=== PATIENT | female | born 1975 | race Caucasian/White ===

== ENCOUNTER 2017-01-27 19:43 | Observation (INO) ==
--- NOTE | 2017-01-28 01:22 | Internal Med History&Physical ---
Date of Encounter: 01/28/17 Time of Encounter: 01:20 Assessment and Plan (1) Chest pain Current visit: Yes Status: Acute Chest pain are consistent with angina. Cardiac enzymes ordered. Aspirin is started and we will see if she can tolerate beta annabella. Schedule stress Myoview in the morning troponins are negative.. For risk stratification lipid profile ordered as well as hemoglobin A1c Qualifiers: Chest pain type: unspecified Qualified Code(s): R07.9 - Chest pain, unspecified (2) Acute exacerbation of chronic obstructive airways disease Current visit: Yes Status: Acute Breath sounds are shallow scattered wheezing at nebulizer 4 times a day (3) Diabetes mellitus Current visit: No Status: Chronic Accu-Chek 4 times a day with sliding scale coverage Qualifiers: Diabetes mellitus type: other specified (including RADU) Diabetes mellitus complication status: with hyperglycemia Diabetes mellitus [facility] insulin use: with [facility] use Qualified Code(s): E13.65 - Other specified diabetes mellitus with hyperglycemia; Z79.4 - termite helper (current) use of insulin; Z79.4 - jail (current) use of insulin; Z79.4 - jail (current) use of insulin ; Z79.4 - termite helper (current) use of insulin (4) Morbid obesity Current visit: No Status: Acute Counseling provided Internal Medicine - H&P: HPI Chief complaint: Chest pain Admitted From: Home Plans for Post Hospital Care: Home History of present illness: Ms. Cervantes is a 41 year old female has been having recurrent chest pain for last few weeks. Her family doctor has scheduled her for a stress test on February 10 however since her chest pain is getting worse she decided to come to ER. Patient has past medical history significant for diabetes and COPD. She is on home O2. For last few weeks she has been having substernal chest pain radiating to her neck and left arm and to her back. It is not accompanied with any nausea vomiting dizziness abdominal pain syncope palpitation or any other symptoms otherwise. It usually gets better with rest or aspirin. Past Med Surg Social Fam HX - Past Medical History Medical history: asthma, COPD, coronary artery disease, diabetes, GERD, seizures , syncope Psychiatric history: anxiety, bipolar, depression - Past Surgical History Surgical History: , other - Social History Smoking Status: Former smoker Smokeless Tobacco Status: No Alcohol use: none Drug use: none - Family History Father Adopted: No Living Status: Still Living Hx Family Cardiac Disorders: Yes (History of CABG and valvular disease) Hx Family Respiratory Disorders: Yes Hx Family Endocrine Disorder: Yes (History of diabetes) Mother Adopted: Yes Living Status: Still Living Internal Medicine - H&P: Meds ALPRAZolam [Xanax 1 MG Tablet] 1 mg PO BID PRN 03/12/15 [History] Albuterol Neb [Proventil Neb] 2.5 mg IH Q4HR 03/12/15 [History] Albuterol Sulfate [Ventolin Hfa] 2 aerosol IH QID PRN 03/12/15 [History] Budesonide/Formoterol 160/4.5 [Symbicort 160/4.5] 2 puff IH BIDR 03/12/15 [ History] Gabapentin [Neurontin] 300 mg PO TID 03/12/15 [History] HYDROcodone/Acet 5/325 mg [[place] 5-325 mg] 1 tab PO BID PRN 03/12/15 [History] Insulin Glargine,Hum.rec.anlog [Lantus Solostar] 40 unit SQ QAM 03/12/15 [ History] Insulin Glargine,Hum.rec.anlog [Lantus Solostar] 100 unit SQ HS 03/12/15 [ History] Ipratropium/Albuterol Neb [Duoneb] 3 ml IH Q6HR 03/12/15 [History] Liraglutide [Victoza 2-Lasha] 1.2 ml SQ DAILY 03/12/15 [History] Naproxen [Naprosyn] 500 mg PO BID PRN 03/12/15 [History] Tiotropium [Spiriva] 18 mcg IH 0700 03/12/15 [History] glipiZIDE [Glucotrol] 10 mg PO BIDWM 03/12/15 [History] lamoTRIgine [Lamictal Xr] 200 mg PO BID 03/12/15 [History] FLUoxetine HCl [Prozac] 40 mg PO DAILY 06/28/15 [History] Omeprazole 20 mg PO DAILY 06/28/15 [History] Insulin LISPRO [HumaLOG] 0 units SQ Q6HR vial 06/29/15 [Rx] Albuterol Sulfate [Albuterol Inhaler] 2 puff IH Q4H PRN #1 inhaler 12/30/16 [Rx] 3 Allergy/AdvReac Type Severity Reaction Status Date / Time tramadol AdvReac See Verified 10/15/15 10:32 Comments All Systems PM: A 10-system review of systems was performed and is negative for pertinent findings except as documented above in the HPI. - Constitutional Constitutional: no chills, no fever(s), no night sweats - EENT Eyes: no change in vision, no discharge, no pain, no photophobia Ears: no ear discharge, no ear pain, no tinnitus Nose, mouth and throat: no dysphagia, no nasal discharge, no neck pain, no sore throat - Cardiovascular Cardiovascular ROS IM: no chest pain, no diaphoresis, no dyspnea, no lightheadedness, no palpitations, no syncope - Respiratory Respiratory: no cough, no dyspnea, no wheezing, no excessive phlegm production - Gastrointestinal Gastrointestinal: no abdominal pain, no diarrhea, no hematemesis, no hematochezia, no melena, no nausea, no vomiting - Genitourinary Genitourinary: no change in urinary stream, no dysuria, no flank pain, no hematuria - Musculoskeletal Musculoskeletal ROS IM: no numbness, no tingling - Integumentary Integumentary IM: no rash, no unusual bruising - Neurological Neurological ROS: no confusion, no convulsions, no focal weakness, no numbness, no tingling, no tremor(s) - Hematologic/Lymphatic Hematologic/Lymphatic: no easy bruising - Constitutional Vitals: Temp Pulse Resp BP Pulse Ox 97.7 F 93 15 98/62 99 01/27/17 22:25 01/27/17 22:25 01/27/17 22:25 01/27/17 22:25 01/27/17 22:25 - Head Head exam: Present: atraumatic, normocephalic - Eye Eye exam: Present: PERRL, conjuntiva pink, sclera anicteric Pupils: Present: PERRL - Neck Neck exam general surgery: Present: supple, trachea midline. Absent: lymphadenopathy - Respiratory Respiratory exam: Present: decreased breath sounds, wheezes. Absent: accessory muscle use, rales, rhonchi - Cardiovascular Cardiovascular exam: Present: RRR, +S1, +S2. Absent: diastolic murmur, gallop, rubs, systolic murmur - GI/Abdominal GI/Abdominal exam: Present: normal bowel sounds, soft, no peritoneal signs. Absent: distended, tenderness - Extremities Exam Extremities exam: Present: warm, radial pulses palpable and symmetrical. Absent : calf tenderness, cyanotic, pedal edema - Neurological Exam Neurological exam: Present: CN II-XII intact, oriented X3, no focal deficits. Absent: pronater drift, facial droop, speech deficit - Skin Skin exam: Present: dry, intact
[2017-01-28] MEDS ORDERED: Dextrose Gel 15 GM PO PRN ×2 (02:04)
[2017-01-28] MEDS ORDERED: D5% in Water 1,000 ML IVC PRN (02:04)
[2017-01-28] MEDS ORDERED: *HR* Dextrose 50 % in Water (Syg) 50 ML SYRINGE IVP PRN (02:04)
[2017-01-28] MEDS ORDERED: Mag Hydrox/Al Hydrox/Simeth 30 ML UDC PO PRN (02:05)
[2017-01-28] MEDS ORDERED: Naloxone 0.4 MG/ML INJ IVP PRN (02:05)
[2017-01-28] MEDS ORDERED: *HR* Morphine 2 MG/ML SYRINGE IVP PRN (02:05)
[2017-01-28] MEDS ORDERED: Acetaminophen 325 MG TABLET PO PRN (02:05)
[2017-01-28 03:29] LABS: Hemoglobin A1C 11.3 %
[2017-01-28] MEDS: Ipratropium/Albuterol Neb 3 ML IH SCH ×4 (03:48→21:09)
[2017-01-28] MEDS: Gabapentin 300 MG CAPSULE PO SCH ×4 (04:05→21:30)
[2017-01-28] MEDS: Insulin LISPRO 300 UNITS/3 ML VIAL SQ SCH ×5 (04:05→21:29)
[2017-01-28 06:39] LABS: Basophils % 0.3 %; Eosinophils # 0.2 K/mcL (0.0-0.6); Eosinophils % 3.4 %; Immature Granulocytes % 0.3 % (0-4); Lymphocytes # 2.4 K/mcL (0.6-4.6); Lymphocytes % 33.2 %; Mean Corpuscular HGB Conc 30.3 g/dL (31.6-35.5); Mean Corpuscular Hemoglobin 21.9 pg (28.0-33.3); Mean Corpuscular Volume 72.4 fL (83.0-100.0); Mean Platelet Volume 9.8 fL (9.4-12.4); Monocytes # 0.3 K/mcL (0.0-1.3); Monocytes % 4.8 %; Neutrophils # 4.2 K/mcL (1.6-8.9); Platelet Count 230 K/mcL (140-400); Red Blood Count 4.56 M/mcL (3.82-4.97); Red Cell Distribution Width 16.2 % (11.5-14.5)
[2017-01-28 06:51] LABS: Alanine Aminotransferase 9 Units/L (0-55); Albumin 2.8 g/dL (3.5-5.0); Albumin/Globulin Ratio 0.8 (1.1-2.2); Alkaline Phosphatase 85 Units/L (38-126); Aspartate Amino Transferase 16 Units/L (5-34); BUN/Creatinine Ratio 14 (6-26); Bilirubin,Total 0.4 mg/dL (0.2-1.2); Blood Urea Nitrogen 10 mg/dL (7-20); Calcium 8.5 mg/dL (8.6-10.8); Carbon Dioxide 24 mEq/L (19-29); Chloride 99 mEq/L (98-109); Chol/HDL Ratio 6.4 (0-4.9); Cholesterol 172 mg/dL (< 200); Globulin 3.7 g/dL (2.4-3.5); Glucose 285 mg/dL (70-99); HDL Cholesterol 27 mg/dL (40-59); LDL Cholesterol,Calculated 82 mg/dL (0-99); Osmolality,Calculated 291 (280-300); Potassium 3.6 mEq/L (3.5-4.5); Sodium 136 mEq/L (136-145); Total Protein 6.5 g/dL (6.0-8.3); Triglycerides 316 mg/dL (< 150); eGFR For African Americans > 60 (> 60); eGFR For Non-African Americans > 60 (> 60)
[2017-01-28] MEDS ORDERED: Regadenoson 0.4 MG/5 ML SYRINGE IVP ONE (08:06)
[2017-01-28] MEDS ORDERED: Aspirin Enteric Coated 81 MG Tablet PO SCH (09:00)
[2017-01-28] MEDS: Ondansetron 4 MG/2 ML VIAL IVP PRN ×2 (10:24→18:56)
[2017-01-28] MEDS: FLUoxetine 20 MG CAPSULE PO SCH (10:24)
[2017-01-28] MEDS: lamoTRIgine 100 MG TABLET PO SCH ×2 (10:30→21:30)
[2017-01-28] MEDS: Budesonide/Formoterol 160/4.5 MDI IH SCH ×2 (10:36→21:09)
--- NOTE | 2017-01-28 11:57 | Internal Med Progress Note ---
Date of Encounter: 01/28/17 Time of Encounter: 10:10 - Assessment and plan (1) Chest pain Current Visit: Yes Status: Acute Assessment and plan: Patient reports approximately 1 month history of midsternal chest pain with radiation into her left arm and into mid back. She reports increased shortness of breath above her baseline, nausea, and diaphoresis with the pain. She reports numbness and tingling to her left arm. The pain is relieved with sitting becomes worse with deep inspiration and lying in a supine position. She reports the pain happens daily and lasts for about 15-20 minutes. She describes it as a tightness. She was seen by cardiology, Dr. Soto in December. He scheduled her to have a stress test and echo later this month but she was unable to wait until then. Pt is a 2 day stress test, will be completed tomorrow. Troponin was negative. Chest xray is negative for acute process. Continue telemetry ASA or morphine for chest pain prn Stress test to be completed tomorrow. Consider cardiology consultation based on stress results Qualifiers: Chest pain type: unspecified Qualified Code(s): R07.9 - Chest pain, unspecified (2) Acute exacerbation of chronic obstructive airways disease Current Visit: Yes Status: Acute Assessment and plan: No acute exacerbation. Lungs are clear and diminished. Pt wears home 02, 2L, is requiring 3 liters currently. Chest xray negative. 02 as needed to maintain sats > 92%. Telemetry Continue home medications and nebulizer treatments (3) Morbid obesity Current Visit: Yes Status: Chronic Assessment and plan: Chronic. Lifestyle modifications (4) DVT prophylaxis Current Visit: No Status: Inactive Assessment and plan: Heparin SQ, up to chair. (5) Diabetes mellitus Current Visit: Yes Status: Chronic Assessment and plan: Uncontrolled. Pt non-adherent to medication regimen due to financial constraints. SS consulted. Diabetic diet, SSI, and accuchecks achs. Refuses referrral back to diabetes education. Qualifiers: Diabetes mellitus type: other specified (including RADU) Diabetes mellitus complication status: with hyperglycemia Diabetes mellitus intermission coordinator insulin use: with intermission coordinator use Qualified Code(s): E13.65 - Other specified diabetes mellitus with hyperglycemia; Z79.4 - pen[facility]iary (current) use of insulin; Z79.4 - exterminator termite (current) use of insulin; Z79.4 - exterminator termite (current) use of insulin ; Z79.4 - exterminator termite (current) use of insulin - Time Spent With Patient less than 15 minutes - Subjective Interval history: Pt was seen and assessed at bedside at 1010 a.m. She is alert, awake, calm, and pleasant. We discussed the risks of her uncontrolled DM and elevated A1c. She denies need for diabetic education or any other assistance. she denies chest pain at this time, also denies n/v/d, headache, dizziness, or vision changes. She is a 2 day stress test. Pt is aware, questions answered. - Constitutional Vitals: Temp Pulse Resp BP Pulse Ox 97.4 F L 95 18 93/62 99 01/28/17 11:12 01/28/17 11:12 01/28/17 11:12 01/28/17 11:12 01/28/17 11:12 General appearance: Present: cooperative, A&O X 3, morbidly obese, no acute distress, answers questions appropriately - Head Head exam: Present: atraumatic, normal inspection, normocephalic - Eye Eye exam: Present: normal appearance, conjuntiva pink, sclera anicteric - Neck Neck exam general surgery: Present: supple, trachea midline. Absent: lymphadenopathy - Respiratory Respiratory exam: Present: CTAB. Absent: accessory muscle use, chest wall tenderness, decreased breath sounds, rales, rhonchi, wheezes - Cardiovascular Cardiovascular exam: Present: RRR, +S1, +S2. Absent: diastolic murmur, gallop, rubs, systolic murmur - GI/Abdominal GI/Abdominal exam: Present: normal bowel sounds, soft, no peritoneal signs. Absent: distended, firm, hepatomegaly, rigid, tenderness - Extremities Exam Extremities exam: Present: normal capillary refill, normal inspection, warm, radial pulses palpable and symmetrical. Absent: calf tenderness, cyanotic, pedal edema - Neurological Exam Neurological exam: Present: alert, oriented X3, no focal deficits. Absent: altered, facial droop, speech deficit - Skin Skin exam: Present: dry, intact, normal color, warm. Absent: rash Internal Medicine: Result - Labs CBC & Chem 7: 01/28/17 06:11 01/28/17 06:11 Labs: Short CBC 01/28/17 Range/Units 06:11 WBC 7.1 (4.3-11.1) K/mcL Hgb 10.0 L (11.5-15.4) g/dL Hct 33.0 L (35.3-44.9) % Plt Count 230 (140-400) K/mcL Neutrophils # 4.2 (1.6-8.9) K/mcL BMP 01/28/17 06:11 Sodium 136 Potassium 3.6 Chloride 99 Carbon Dioxide 24 BUN 10 Creatinine 0.72 Glucose 285 H Calcium 8.5 L Cardiac Enzymes 01/28/17 Range/Units 02:53 Troponin I 0.00 (0-0.03) ng/mL Liver Function 01/28/17 Range/Units 06:11 Total Bilirubin 0.4 (0.2-1.2) mg/dL AST 16 (5-34) Units/L ALT 9 (0-55) Units/L Alkaline Phosphatase 85 (38-126) Units/L Albumin 2.8 L (3.5-5.0) g/dL Consult Discharge Plan - Plan Referrals: Huang Moralez MD [Primary Care Provider] -
[2017-01-28] MEDS ORDERED: *HR* HYDROcodone/Acet 5/325 mg TABLET PO PRN ×2 (12:17→13:48)
[2017-01-28] MEDS ORDERED: Albuterol 2.5 MG/3 ML NEBULIZER IH PRN (12:17)
[2017-01-28] MEDS: ALPRAZolam 1 MG TABLET PO PRN ×2 (12:19→21:30)
[2017-01-28] MEDS ORDERED: Ondansetron 4 MG/2 ML VIAL IVP STA (13:45)
[2017-01-28] MEDS: Nitroglycerin 0.4 MG TAB.SUBL SL PRN ×3 (13:54→18:50)
--- NOTE | 2017-01-28 19:06 | Electrocardiograph Report ---
[place] [id number] Test Date: 2017-01-28 Pat Name: Kiana Cervantes Department: 113 Room: 3B Gender: F Slag Mixer: JOSE A : 1975 Requested By: Susie Frazier Order Number: [id number] Reading MD: Jose Guadalupe Grider DO Measurements Intervals [place] Rate: 113 P: 66 WA: 137 QRS: 52 QRSD: 73 T: 16 QT: 339 QTc: 406 Interpretive Statements SINUS TACHYCARDIA LOW QRS VOLTAGE IN PRECORDIAL LEADS Electronically Signed On 01-28-2017 19:04:13 EST by Jose Guadalupe Grider DO
[2017-01-28] MEDS ORDERED: lamoTRIgine 100 MG TABLET PO SCH (21:00)
[2017-01-28] MEDS ORDERED: Insulin DETEMIR 100 UNIT/ML X5UNITS SQ SCH (21:00)
[2017-01-29] MEDS: Ipratropium/Albuterol Neb 3 ML IH SCH ×2 (03:24→10:58)
[2017-01-29 05:42] LABS: Basophils % 0.3 %; Immature Granulocytes % 0.3 % (0-4)
[2017-01-29 05:43] LABS: Eosinophils # 0.2 K/mcL (0.0-0.6); Eosinophils % 2.8 %; Hematocrit 31.3 % (35.3-44.9); Hemoglobin 9.3 g/dL (11.5-15.4); Lymphocytes # 2.1 K/mcL (0.6-4.6); Lymphocytes % 32.4 %; Mean Corpuscular HGB Conc 29.7 g/dL (31.6-35.5); Mean Corpuscular Hemoglobin 21.9 pg (28.0-33.3); Mean Corpuscular Volume 73.8 fL (83.0-100.0); Mean Platelet Volume 9.6 fL (9.4-12.4); Monocytes # 0.4 K/mcL (0.0-1.3); Monocytes % 5.9 %; Neutrophils # 3.8 K/mcL (1.6-8.9); Platelet Count 228 K/mcL (140-400); Red Blood Count 4.24 M/mcL (3.82-4.97); Red Cell Distribution Width 16.4 % (11.5-14.5); Segmented Neutrophils % 58.3 %
[2017-01-29 05:52] LABS: BUN/Creatinine Ratio 11 (6-26); Blood Urea Nitrogen 8 mg/dL (7-20); Calcium 8.7 mg/dL (8.6-10.8); Carbon Dioxide 25 mEq/L (19-29); Chloride 102 mEq/L (98-109); Glucose 292 mg/dL (70-99); Osmolality,Calculated 297 (280-300); Potassium 3.8 mEq/L (3.5-4.5); Sodium 139 mEq/L (136-145); eGFR For African Americans > 60 (> 60); eGFR For Non-African Americans > 60 (> 60)
[2017-01-29 06:05] LABS: Anisocytosis 2+ (Not Present); Microcytosis Present (Not Present); Platelet Estimate Normal (Normal)
[2017-01-29 07:25] VITALS: BP 100/68
[2017-01-29] MEDS: Nitroglycerin 0.4 MG TAB.SUBL SL PRN ×3 (08:55→09:06)
[2017-01-29] MEDS: Ondansetron 4 MG/2 ML VIAL IVP PRN (08:57)
[2017-01-29] MEDS ORDERED: Insulin DETEMIR 100 UNIT/ML X5UNITS SQ SCH (09:00)
[2017-01-29] MEDS: FLUoxetine 20 MG CAPSULE PO SCH (09:00)
[2017-01-29] MEDS ORDERED: Aspirin Enteric Coated 81 MG Tablet PO SCH (09:00)
[2017-01-29] MEDS: lamoTRIgine 100 MG TABLET PO SCH (09:00)
[2017-01-29] MEDS: Insulin LISPRO 300 UNITS/3 ML VIAL SQ SCH (09:01)
[2017-01-29] MEDS: Gabapentin 300 MG CAPSULE PO SCH (09:01)
[2017-01-29] MEDS: Budesonide/Formoterol 160/4.5 MDI IH SCH (10:59)
--- NOTE | 2017-01-29 11:14 | Discharge Summary ---
Date of Encounter: 01/29/17 Time of Encounter: 09:10 - Discharge Diagnosis (1) Chest pain Priority: Primary Status: Acute Comments: Patient reports approximately 1 month history of midsternal chest pain with radiation into her left arm and into mid back. She reports increased shortness of breath above her baseline, nausea, and diaphoresis with the pain. She reports numbness and tingling to her left arm. The pain is relieved with sitting becomes worse with deep inspiration and lying in a supine position. She reports the pain happens daily and lasts for about 15-20 minutes. She describes it as a tightness. She was seen by cardiology, Dr. Soto in December. He scheduled her to have a stress test and echo later this month but she was unable to wait until then. Pt is a 2 day stress test, will be completed tomorrow. Troponin was negative. Chest xray is negative for acute process. Stress was negative for ischemia or infarct, gated EF 58%. Pt had 2 episodes of chest pain that was relieved with NTG SL. Pt had associated nausea and vomiting. I discussed case with cardiology CYTOLOGY TECHNOLOGIST and will add Imdur 30mg po daily and pt will follow up with cardiology in the clinic. Anginal chest pain that requires following. Pt reports that she needs assistance with financial aspect of obatining medications. SS will discuss with pt. Qualifiers: Chest pain type: unspecified Qualified Code(s): R07.9 - Chest pain, unspecified (2) Acute exacerbation of chronic obstructive airways disease Priority: Secondary Status: Acute Comments: No acute exacerbation. Lungs are clear and diminished. Pt wears home 02 @ 2L/ nc. Pt is not requiring 02 above her baseline. Chest xray negative. 02 as needed to maintain sats > 92%. Continue home medications (3) Morbid obesity Priority: Secondary Status: Chronic Comments: Chronic. Lifestyle modifications. (4) Diabetes mellitus Priority: Secondary Status: Chronic Comments: Uncontrolled, A1c 11.3. Pt states that she is not adherent to diabetic diet and states that she cannot always afford her medications. SS to discuss with pt. Pt states that she does not need to go back to diabetes education. Continue home medications and adhere to diabetic diet. Encourage increased exercise. Qualifiers: Diabetes mellitus type: other specified (including RADU) Diabetes mellitus complication status: with hyperglycemia Diabetes mellitus snf insulin use: with snf use Qualified Code(s): E13.65 - Other specified diabetes mellitus with hyperglycemia; Z79.4 - tube cutter operator (current) use of insulin; Z79.4 - tube cutter operator (current) use of insulin; Z79.4 - [facility] (current) use of insulin ; Z79.4 - tube cutter operator (current) use of insulin (5) DVT prophylaxis Priority: Secondary Status: Acute Comments: Heparin SQ, up to chair. - Discharge Medications Prescriptions: Isosorbide MONOnitrate (24 HR) [Imdur] 30 mg PO DAILY #30 tab.er.24h Home Medications: ALPRAZolam [Xanax 1 MG Tablet] 1 mg PO BID PRN 03/12/15 [History] Albuterol Neb [Proventil Neb] 2.5 mg IH Q4HR PRN 03/12/15 [History] Budesonide/Formoterol 160/4.5 [Symbicort 160/4.5] 2 puff IH BIDR 03/12/15 [ History] Gabapentin [Neurontin] 300 mg PO TID 03/12/15 [History] HYDROcodone/Acet 5/325 mg [[place] 5-325 mg] 1 tab PO DAILY PRN 03/12/15 [History] Insulin Glargine,Hum.rec.anlog [Lantus Solostar] 40 unit SQ QAM 03/12/15 [ History] Insulin Glargine,Hum.rec.anlog [Lantus Solostar] 100 unit SQ HS 03/12/15 [ History] Ipratropium/Albuterol Neb [Duoneb] 3 ml IH Q6HR PRN 03/12/15 [History] Liraglutide [Victoza 2-Lasha] 1.2 mg SQ DAILY 03/12/15 [History] Naproxen [Naprosyn] 500 mg PO BID PRN 03/12/15 [History] glipiZIDE [Glucotrol] 10 mg PO BIDWM 03/12/15 [History] FLUoxetine HCl [Prozac] 40 mg PO DAILY 06/28/15 [History] Omeprazole 20 mg PO DAILY 06/28/15 [History] Albuterol Sulfate [Albuterol Inhaler] 2 puff IH Q4H PRN #1 inhaler 12/30/16 [Rx] Aspirin Enteric Coated [Aspirin EC] 81 mg PO DAILY 01/28/17 [History] Atorvastatin [Lipitor] 40 mg PO HS 01/28/17 [History] Insulin LISPRO [HumaLOG] 0 units SQ TIDWM 01/28/17 [History] Umeclidinium Gratis [Incruse Ellipta] 62.5 mcg IH DAILY 01/28/17 [History] lamoTRIgine [Lamictal] 200 mg PO BID 01/28/17 [History] Isosorbide MONOnitrate (24 HR) [Imdur] 30 mg PO DAILY #30 tab.er.24h 01/29/17 [ Rx] Allergies/Adverse Reactions: 3 Allergy/AdvReac Type Severity Reaction Status Date / Time tramadol AdvReac See Verified 10/15/15 10:32 Comments Procedures/tests Complete & Pending: Procedures Performed prior 72 hours Category Date Time Status NM vicki perf SPECT multi [NM] Routine Exams 01/28/17 02:04 Taken ECG 12 lead ECG [ECG] Routine Y 01/28/17 13:51 Completed SP pharm nuclear stress Routine Y 01/28/17 02:03 Completed Date of admission: 01/27/17 21:49 Primary care physician: Huang Moralez MD Consults: 01/29/17 08:01 Consult to Director Of Campus Recreation [CONS] Routine Reason for SW Consult: assistance with medications Discharging clinician: Susie Frazier Anticipated date of discharge: 01/29/17 - Patient Status Disposition: Home, Self-Care Condition: Good Functional capacity at discharge: independent ambulation Overall status at discharge: patient is back to baseline - Discharge Instructions Follow Up With: Huang Moralez MD [Primary Care Provider] - Additional Instructions: Please follow-up with her primary care provider the next 7-10 days. Please follow-up with cardiology as scheduled. New prescription has been called into your pharmacy in [facility]. Please increase your exercise, and stick to a diabetic diet. Take the rest of her medications as directed. Return to the emergency department as needed for any other problems or concerns , or if her symptoms return or worsen. - Diet and Activity Activity: increase activity as tolerated Diet: diabetic diet, low fat, low cholesterol Hospital course: Ms. Cervantes is a 41 year old female with past medical history of COPD, diabetes, tobacco abuse, depression, morbid obesity. She presented to the emergency room with chest pain. She had multiple episodes of chest pain while she was here that were relieved with nitroglycerin. Chest pain was midsternal, sharp, without radiation. Patient had associated nausea and vomiting. Patient will be sent home with a prescription for Imdur and will resume her normal medications. She will follow up with cardiology in the clinic. Her stress test was negative she had no EKG changes and she is chest pain-free on discharge. technical services librarian will speak with her regarding financial concerns about obtaining medications. - Time Spent with Patient Total time spent providing and/or coordinating discharge services: Less than 30 minutes - Constitutional Vitals: Temp Pulse Resp BP Pulse Ox 98.1 F 82 15 100/68 98 01/29/17 07:24 01/29/17 07:24 01/29/17 07:24 01/29/17 07:24 01/29/17 09:23 General appearance: Present: cooperative, A&O X 3, morbidly obese, no acute distress, answers questions appropriately - Head Head exam: Present: atraumatic, normal inspection, normocephalic - Eye Eye exam: Present: normal appearance, conjuntiva pink, sclera anicteric - Neck Neck exam general surgery: Present: normal inspection, supple, trachea midline. Absent: lymphadenopathy, tenderness - Respiratory Respiratory exam: Present: CTAB. Absent: accessory muscle use, chest wall tenderness, rales, rhonchi, wheezes - Cardiovascular Cardiovascular exam: Present: RRR, +S1, +S2. Absent: diastolic murmur, gallop, rubs, systolic murmur - GI/Abdominal GI/Abdominal exam: Present: normal bowel sounds, soft. Absent: distended, hepatomegaly, tenderness - Extremities Exam Extremities exam: Present: normal capillary refill, warm, radial pulses palpable and symmetrical. Absent: calf tenderness, cyanotic, pedal edema, tenderness - Neurological Exam Neurological exam: Present: alert, oriented X3, no focal deficits. Absent: altered, facial droop, speech deficit - Skin Skin exam: Present: dry, intact, normal color, warm. Absent: rash
[2017-01-29] MEDS ORDERED: Isosorbide MONOnitrate (24 HR) 30 MG TAB.ER.24H PO SCH (11:15)
[2017-01-29] MEDS ORDERED: *HR* Heparin 5,000 UNIT/ML VIAL SQ SCH (12:02)
--- NOTE | 2017-01-30 13:12 | Electrocardiograph Report ---
[place] [id number] Test Date: 2017-01-29 Pat Name: Kiana Cervantes Department: 113 Room: 3B Gender: F Emery Wheel Molder: : 1975 Requested By: Susie Frazier Order Number: [id number] Reading MD: Martha Dietrich Measurements Intervals [place] Rate: 89 P: 49 SD: 141 QRS: 43 QRSD: 77 T: 43 QT: 353 QTc: 400 Interpretive Statements SINUS RHYTHM Electronically Signed On 01-30-2017 13:10:05 EST by Martha Dietrich
== END 2017-01-29 14:15 | disposition home or self-care (01) ==
LOC: 3BNU
PROVIDERS: ADMIT Internal Medicine; ATTEND Registered Nurse

== ENCOUNTER 2020-07-24 16:26 | Observation (INO) ==
[2020-07-24] MEDS ORDERED: Perflutren Lipid Microsphere 1.3 ML in 0.9 % Sodium Chloride 8.7 ML IVP PRN (20:35)
[2020-07-24] MEDS ORDERED: Morphine Sulfate 2 MG/ML SYRINGE IVP ONE (21:13)
[2020-07-24] MEDS ORDERED: Nitroglycerin 0.4 MG TAB.SUBL SL PRN (21:13)
[2020-07-24] MEDS ORDERED: Ondansetron 4 MG/2 ML VIAL IVP PRN (21:14)
[2020-07-24] MEDS ORDERED: Acetaminophen 325 MG TABLET PO PRN (21:14)
[2020-07-24] MEDS ORDERED: Naloxone 0.4 MG/ML INJ IVP PRN (21:14)
[2020-07-24] MEDS ORDERED: Dextrose Gel 15 GM/37.5 ML TUBE PO PRN ×2 (21:18)
[2020-07-24] MEDS ORDERED: *HR* Dextrose 50 % in Water (Vial) 50 ML VIAL IVP PRN (21:18)
[2020-07-24] MEDS ORDERED: D5% in Water 1,000 ML IVC PRN (21:18)
[2020-07-24] MEDS ORDERED: Insulin LISPRO 300 UNITS/3 ML VIAL SUBQ SCH (21:30)
[2020-07-24] MEDS ORDERED: *HR* LORazepam 2 MG/ML VIAL IVP PRN (22:20)
[2020-07-24 23:07] LABS: Amphetamine Screen,Urine Negative ng/mL (Cutoff=1000); Barbiturate Screen,Urine Negative ng/mL (Cutoff=200); Benzodiazepines Screen,Urine Positive ng/mL (Cutoff=200); Cannabinoid Screen,Urine Negative ng/mL (Cutoff = 50); Cocaine Screen,Urine Negative ng/mL (Cutoff= 300); Opiate Screen,Urine Negative ng/mL (Cutoff=300); Phencyclidine Screen,Urine Negative ng/mL (Cutoff=25)
[2020-07-25 04:01] LABS: BUN/Creatinine Ratio 18 (6-26); Blood Urea Nitrogen 9 mg/dL (6-20); Calcium 8.7 mg/dL (8.6-10.3); Carbon Dioxide 27 mEq/L (23-29); Chloride 101 mEq/L (98-107); Chol/HDL Ratio 6.1 (0-4.9); Cholesterol 184 mg/dL (< 200); Glucose 225 mg/dL (70-105); HDL Cholesterol 30 mg/dL (40-59); LDL Cholesterol,Calculated 103 mg/dL (< 100); Magnesium 1.5 mg/dL (1.6-2.6); Osmolality,Calculated 288 (280-300); Potassium 3.7 mEq/L (3.5-5.1); Sodium 136 mEq/L (136-145); Triglycerides 253 mg/dL (< 150); eGFR For African Americans > 60 (> 60); eGFR For Non-African Americans > 60 (> 60)
[2020-07-25 04:15] LABS: Thyroid Stimulating Hormone 2.144 mcIU/mL (0.340-5.600)
[2020-07-25 04:56] LABS: Estimated Average Glucose 312 mg/dl; Hemoglobin A1C 12.5 %
[2020-07-25] MEDS: Insulin LISPRO 300 UNITS/3 ML VIAL SUBQ SCH ×3 (04:56→12:21)
[2020-07-25 05:38] LABS: Folate 9.8 ng/mL (3.0-16.0)
[2020-07-25] MEDS ORDERED: Famotidine 20 MG/2 ML VIAL IVP SCH (06:00)
[2020-07-25] MEDS ORDERED: *HR* Heparin 5,000 UNIT/ML VIAL SQ SCH (06:00)
[2020-07-25] MEDS ORDERED: Regadenoson 0.4 MG/5 ML SYRINGE IVP ONE (06:22)
[2020-07-25] MEDS ORDERED: *HR* LORazepam 2 MG/ML VIAL IVP ONE (06:29)
[2020-07-25 06:52] LABS: Hematocrit 36.4 % (35.3-44.9); Hemoglobin 11.3 g/dL (11.5-15.4); Mean Corpuscular Hemoglobin 24.4 pg (28.0-33.3); Mean Corpuscular Volume 78.6 fL (83.0-100.0); Mean Platelet Volume 9.8 fL (9.4-12.4); Platelet Count 235 K/mcL (140-400); Red Blood Count 4.63 M/mcL (3.82-4.97); Red Cell Distribution Width 14.6 % (11.5-14.5); White Blood Count 6.6 K/mcL (4.3-11.1)
[2020-07-25] MEDS ORDERED: Cyanocobalamin (B-12) 1,000 MCG/ML VIAL SQ ONE (07:45)
[2020-07-25] MEDS ORDERED: Albuterol 2.5 MG/3 ML NEBULIZER IH SCH ×2 (09:00→11:15)
[2020-07-25] MEDS ORDERED: lamoTRIgine 25 MG TABLET PO SCH (09:00)
[2020-07-25] MEDS ORDERED: Gabapentin 300 MG CAPSULE PO SCH (09:00)
[2020-07-25] MEDS ORDERED: FLUoxetine 20 MG CAPSULE PO SCH (09:00)
[2020-07-25] MEDS ORDERED: ALPRAZolam 1 MG TABLET PO SCH (09:00)
[2020-07-25] MEDS ORDERED: Budesonide/Formoterol 160/4.5 1 PUFF INH IH SCH (09:00)
[2020-07-25] MEDS ORDERED: Aspirin Enteric Coated 81 MG Tablet PO SCH (09:00)
[2020-07-25] MEDS ORDERED: Insulin DETEMIR 100 UNIT/ML X5UNITS SUBQ SCH ×3 (09:00→21:00)
[2020-07-25] MEDS ORDERED: lamoTRIgine 100 MG TABLET PO SCH (09:00)
[2020-07-25 10:18] VITALS: BP 110/61
[2020-07-25] MEDS ORDERED: Ipratropium/Albuterol Neb 3 ML IH SCH ×2 (12:00→16:00)
[2020-07-25] MEDS ORDERED: NON-FORMULARY MEDICATION 1 EACH EACH (Insulin Glargine [Lantus] 300 UNIT/3 ML Mls) SQ SCH (21:00)
== END 2020-07-25 15:18 | disposition home or self-care (01) ==
LOC: 3BNU → SUATTDRO 18:19
PROVIDERS: ADMIT Internal Medicine; ATTEND Internal Medicine